=== PATIENT | male | born 1965 | race Hispanic/Latino ===

== ENCOUNTER 2016-06-10 09:33 | Emergency (ER) | payer SELFPAY ==
--- NOTE | 2016-06-10 11:20 | Emergency Department Report ---
HPI - General Chief Complaint: Upper Respiratory Infection Time Seen by Provider: 06/10/16 11:11 - HPI HPI: Patient here complaining of sinus congestion and pressure headache. He says he been taking Advil, Tylenol and Aleve [id number] for the last couple days. He reports that he has allergies to pollen and this has been going on for over 3 weeks and getting worse over week. 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 Reports that his headache is 5 out of 10 at the front of his head. Denies any fever or chills. Reports cough and that started at night. Reports postnasal drip. Denies any nausea or vomiting, shortness of breath or chest pain. H/O copd positive smoker ED Past Medical Hx - Past Medical History Previous Medical History?: Yes Hx COPD: Yes - Surgical History Past Surgical History?: No - Family History Family history: hypertension - Social History Smoking Status: Current Every Day Smoker Substance Use Type: None - Medications Home Medications: Home Medications Medication Instructions Recorded Confirmed Last Taken Type Azithromycin [Zithromax Z-ALICIA] 250 mg PO DAILY #6 tab 06/10/16 Unknown Rx Benzonatate [Tessalon Perles] 100 mg PO Q8HR PRN #15 capsule 06/10/16 Unknown Rx Cetirizine HCl [ZyrTEC] 10 mg PO QDAY #14 capsule 06/10/16 Unknown Rx Fluticasone [Flonase] 1 spray NS QDAY #1 bottle 06/10/16 Unknown Rx ED Review of Systems ROS: Stated complaint: CONGESTION/SINUS PAIN Other details as noted in HPI Comment: All other systems reviewed and negative Constitutional: denies: chills, fever Eyes: denies: eye pain ENT: congestion. denies: ear pain, throat pain Respiratory: cough. denies: shortness of breath, SOB with exertion, SOB at rest , stridor, wheezing Cardiovascular: denies: chest pain, palpitations, edema, syncope Gastrointestinal: denies: abdominal pain, nausea, vomiting Musculoskeletal: denies: back pain, arthralgia Skin: denies: rash Neurological: headache. denies: weakness, numbness, paresthesias, confusion, abnormal gait, vertigo Physical Exam - Physical Exam Vital Signs: Vital Signs 06/10/16 09:44 Temperature 97.8 F Pulse Rate 83 Respiratory 18 Rate Blood Pressure 140/98 O2 Sat by Pulse 98 Oximetry General: 51-year-old male well-nourished well-developed in no acute distress. Physical Exam: Head: Normocephalic atraumatic Mouth: Moist, no pharyngeal exudate or erythema. Uvula is midline and oral airway is patent. No gingival enlargement or dental tenderness. No facial swelling. No peritonsillar abscesses. Neck: Supple, no C-spine tenderness, no tracheal deviation. Nontender to palpate. no adenopathy Ears: Bilateral TMs congested without erythema .bilateral EAC without any redness swelling or drainage Eyes: Bilateral pupils equal and reactive to light, bilateral EOM intact. Bilateral sclera and conjunctiva without injection. Normal accommodation Nose: Mucosa moist, positive congestion with erythema . Positive clear drainage. frontal sinus tender to palpate. Lungs: Clear to auscultate bilaterally no rhonchi wheezes or rales. Normal work of breathing extremity; No CCE. +2 pulses. No neurovascular compromise Cardiovascular: S1-S2, regular rate rhythm. No murmurs. Skin: clean Dry and intact no rash no lesions Psych: Normal mood and behavior ED Course Vital Signs 06/10/16 09:44 Temperature 97.8 F Pulse Rate 83 Respiratory 18 Rate Blood Pressure 140/98 O2 Sat by Pulse 98 Oximetry - Reevaluation(s) Reevaluation #1: 06/10/16 11:33 stable throughout ED stay. ED Medical Decision Making - Medical Decision Making ED course:Pt with diagnosis and frontal sinusitis, cough and headache. I discussed diagnosis and treatment plan with patient and he is in agreement. Condition discharged home with prescription for Flonase, Zyrtec, Tessalon pearles, and azithromycin. He does not have a primary care physician so I told him to follow-up with [facility]. Critical care attestation.: If time is entered above; I have spent that time in minutes in the direct care of this critically ill patient, excluding procedure time. ED Disposition Clinical Impression: Cough Sinusitis Qualifiers: Sinusitis location: frontal Chronicity: acute Recurrence: recurrent Qualified Code(s): J01.11 - Acute recurrent frontal sinusitis Headache Qualifiers: Headache type: unspecified Headache chronicity pattern: acute headache Intractability: not intractable Qualified Code(s): R51 - Headache Disposition: DISCHARGED TO HOME OR SELFCARE Is pt being admited?: No Does the pt Need Aspirin: No Condition: Stable Instructions: Sinusitis (ED), Acute Cough (ED), Acute Headache (ED) Additional Instructions: Follow-up with [facility] . increase fluid intake in 2 days Flush nostrils out with saline nasal wash Prescriptions: Azithromycin [Zithromax Z-ALICIA] 250 mg PO DAILY #6 tab Benzonatate [Tessalon Perles] 100 mg PO Q8HR PRN #15 capsule PRN Reason: Cough Cetirizine HCl [ZyrTEC] 10 mg PO QDAY #14 capsule Fluticasone [Flonase] 1 spray NS QDAY #1 bottle Referrals: [facility] [Outside] - 06/12/16 Forms: Work/School Release Form(ED)
[2016-06-10 11:24] VITALS: BP 155/103
== END 2016-06-10 11:44 | disposition home or self-care (01) ==
LOC: ED 09:33
DX: J01.11 Acute recurrent frontal sinusitis (principal); R51 Headache; R05 Cough; J44.9 Chronic obstructive pulmonary disease, unspecified; F17.200 Nicotine dependence, unspecified, uncomplicated
CPT/HCPCS: 99282